=== PATIENT | female | born 1950 | race Caucasian/White ===

== ENCOUNTER 2017-12-01 00:15 | Inpatient (IN) ==
[2017-12-01 01:40] LABS: Hematocrit 23.1 % (35.3-44.9); Hemoglobin 6.9 g/dL (11.5-15.4); Immature Platelets 4.6 % (1.1-6.1); Mean Corpuscular HGB Conc 29.9 g/dL (31.6-35.5); Mean Corpuscular Hemoglobin 26.5 pg (28.0-33.3); Mean Corpuscular Volume 88.8 fL (83.0-100.0); Mean Platelet Volume 10.4 fL (9.4-12.4); Nucleated Red Blood Cells 1.4 /100 WBC (0); Platelet Count 107 K/mcL (140-400); Red Cell Distribution Width 14.3 % (11.5-14.5)
[2017-12-01 01:44] VITALS: BP 64/40
[2017-12-01 01:45] LABS: INR 1.7; Prothrombin Time 18.8 Seconds (9.4-12.1)
[2017-12-01 01:54] LABS: Activated Partial Thrombo Time 128.7 Seconds (26.0-36.0)
[2017-12-01 01:57] LABS: Calcium 4.9 mg/dL (8.6-10.3); Magnesium 1.4 mg/dL (1.6-2.6); Phosphorous 5.2 mg/dL (2.7-4.5); Potassium 3.4 mEq/L (3.5-5.1)
[2017-12-01 02:12] LABS: Monocytes # 0.1 K/mcL (0.0-1.3); Neutrophils # 0.4 K/mcL (1.6-8.9); Platelet Estimate Slight Decrease (Normal); Reactive Lymphocytes Present (Not Present); Toxic Granulation Present (Not Present)
[2017-12-01] MEDS ORDERED: *HR* Morphine 2 MG/ML SYRINGE ONE ×2 (02:25)
--- NOTE | 2017-12-01 03:12 | Internal Med History&Physical ---
Date of Encounter: 12/01/17 Time of Encounter: 00:47 (-) Assessment and Plan (1) Septic shock Current visit: Yes Status: Acute 1. Upon arrival, patient was unstable and we resuscitated her four times per ACLS protocol as noted above. 2. Full supportive measures were exhausted, including multiple pressors, IVF, antibiotics, chest tube placement, as well as ongoing ICU care. 3. Despite all measures, patient at 2:27 am as noted above. Family decided to withdraw support and to stop resuscitation just before expiring. A total of 100 minutes critical time provided on this patient (including procedures and resuscitation measures listed above) from 12:47 am to 2:27 am ( time of ). (2) Pneumonia Current visit: No Status: Acute 1. Patient received IV antibiotics at [facility] prior to transfer. 2. She was receiving full supportive measures at [facility], en route to [place], and in our ICU. 3. Despite above measures, patient . 4. Pneumonia was the most likely cause of septic shock. Qualifiers: Pneumonia type: due to unspecified organism Laterality: left Lung location: unspecified part of lung Qualified Code(s): J18.9 - Pneumonia, unspecified organism (3) Pneumothorax, acute Current visit: Yes Status: Acute 1. Needle decompression performed, followed by chest tube placement. Internal Medicine - H&P: HPI Chief complaint: sepsis; respiratory failure Admitted From: Hospital to Hospital Transfer Plans for Post Hospital Care: at Medical Facility History of present illness: Ms. Lane is a 67 year old female who presented to our ICU in direct transfer from [facility] ER. I received a call earlier this evening from Dr. Schaeffer on this patient who presented to the ER there with agonal respirations, followed by cardiac arrest and emergent intubation. She received chest compressions there for about 1 minute with return of spontaneous circulation. She was ventilated and stabilized with fluids, pressors, antibiotics, and central line placement per Dr. Schaeffer. He contacted me requesting to transfer the patient to our ICU. I accepted the patient in transfer after stabilization in the ER there. Patient arrived shortly after 12:30 this morning, and I was summoned to the bedside at roughly 12:45 AM. Upon arrival to the bedside, patient was hypotensive with blood pressures in the 70s systolic. She was ventilated by ventilator. I performed a quick assessment, and I noted that she had diminished breath sounds on the right side of her chest. At that moment, she became bradycardic, hypoxemic, and more hypotensive. Despite pressors, IV fluids, mechanical ventilation followed by bag mask ventilation, and supportive measures performed earlier at [facility], she continued to decline steadily. Within minutes, she became unstable and we called a rapid response. We began full resuscitative measures at that point as she developed bradycardia and asystole. We resuscitated her per ACLS protocol, and we were successful with the initial attempt. During the resuscitation, there was a high clinical index of suspicion of tension pneumothorax on the right side. We obtained a chest x-ray just before her acute decompensation and we could not verify chest x-ray reading with radiology. Based upon clinical suspicion of a tension pneumothorax and rapid decline of respiratory and hemodynamic status, we placed a needle decompression in the anterior chest wall at the second intercostal space and proceeded with resuscitation as above. Once she was stabilized, we repeated her chest x-ray confirming pneumothorax. She then later became bradycardic and asystolic again, and we again resuscitated her per ACLS protocol. Once she stabilized from the second resuscitative event, I stepped out of ICU to meet with her family to discuss ongoing resuscitative efforts and if patient had any prior expressed wishes. Family expressed that she and the family would like her to be full code and requested that we exhaust all measures possible. I informed them that she was critical and that she would likely not survive this evening, but I reassured them that we would provide all measures available. As I was talking to family, I was called back to the bedside emergently as she was becoming unstable again. We had to again resuscitate her at that moment. She was noted on repeat x-ray to have a pneumothorax and we placed a chest tube emergently during this resuscitation. We were able to stabilize her temporarily, but she again became unstable shortly thereafter. As she was becoming unstable, I requested the family to the bedside as we began our fourth and final resuscitative effort in the short time she was here in our ICU. I talked with the immediate family members present, and they were witnessing the resuscitative efforts provided. I informed them that we were providing all supportive measures and, despite such measures, she was unstable and would likely shortly. It was at that moment that the family requested that we stop all resuscitation, keep her comfortable, and to let her naturally. At their request, we stopped chest compressions, mechanical ventilation, and all supportive measures. We provided morphine via IV for comfort measures. She immediately thereafter at 2:27 AM. Suspected cause of : Septic shock secondary to pneumonia of the left lung Time of : 2:27 AM. Family was present at bedside as the patient . Past Med Surg Social Fam HX - Past Medical History Source: old records reviewed, other (ER discussion with Dr. Schaeffer at [facility]) Medical history: arthritis, COPD, hyperlipidemia, hypertension, other Psychiatric history: no psych history - Past Surgical History Surgical History: ESTELA/BSO - Social History Smoking Status: Current every day smoker Smokeless Tobacco Status: No Alcohol use: none Drug use: none Internal Medicine - H&P: Meds Amlodipine Besylate 10 mg PO DAILY 02/19/17 [History] Lisinopril/Hydrochlorothiazide [Zestoretic 20-25 mg Tablet] 1 each PO DAILY 08/28 [History] Tiotropium [Spiriva] 18 mcg IH 0700 02/19/17 [History] Albuterol Sulfate [Ventolin Hfa] 2 puff IH Q4H PRN 05/16/17 [History] Budesonide/Formoterol 80/4.5 [Symbicort 80/4.5] 2 puff IH Q4H 05/16/17 [History ] Calcium Carbonate/Vitamin D3 [Oyster Shell Calcium-Vit D Tab] 1 each PO DAILY [History] Lovastatin [Lovastatin] 40 mg PO HS 05/16/17 [History] Oxygen 2 l NS CONT 05/16/17 [History] Cephalexin [Keflex] 500 mg PO TID 11/30/17 [History] 3 Allergy/AdvReac Type Severity Reaction Status Date / Time No Known Allergies Allergy Verified 05/16/17 10:06 ROS unobtainable: due to endotracheal tube - Constitutional Vitals: Resp BP Pulse Ox 12 64/40 82 12/01/17 00:43 12/01/17 00:43 12/01/17 00:43 Exam: intubated, unresponsive, ashen cantor upon arrival, hemodynamically unstable upon my initial assessment - Head Head exam: Present: normal inspection - Eye Eye exam: Absent: scleral icterus - ENT ENT exam: Present: mucous membranes dry Additional comments: ETT and OG tubes in place - Neck Neck exam general surgery: Absent: thyromegaly, trachea midline (tracheal deviation to the left) - Respiratory Respiratory exam: Present: decreased breath sounds (dminished/absent breath sounds on the right; prominent breath sounds on the left with coarse rhonchi and crackles). Absent: wheezes - Cardiovascular Cardiovascular exam: Present: bradycardia, distant heart sounds Additional comments: irregular; bradycardic; asystole on multiple occasions - GI/Abdominal GI/Abdominal exam: Present: diminished bowel sounds. Absent: hepatomegaly, splenomegaly - Extremities Exam Extremities exam: Present: cyanotic, mottling. Absent: normal capillary refill (delayed; poor cap refill), radial pulses palpable and symmetrical - Neurological Exam Additional comments: intubated and unresponsive - Psychiatric Additional comments: unresponsive - Skin Skin exam: Present: cyanosis (peripheral), dry, mottled. Absent: rash Additional comments: ashen cantor upon arrival Internal Med - H&P Results - Labs CBC & Chem 7: 12/01/17 01:23 12/01/17 01:23 Labs: Short CBC 12/01/17 Range/Units 01:23 WBC 1.5 L (4.3-11.1) K/mcL Hgb 6.9 L D (11.5-15.4) g/dL Hct 23.1 L (35.3-44.9) % Plt Count 107 L (140-400) K/mcL Neutrophils # 0.4 L (1.6-8.9) K/mcL BMP 12/01/17 01:23 Sodium 142 Potassium 3.4 L Chloride 112 H Carbon Dioxide 24 BUN 24 H Creatinine 1.32 H Glucose 192 H Calcium 4.9 L* - Impressions ITS Impressions Chest X-Ray 12/01/17 00:00 IMPRESSION: Right apical pneumothorax without signs of tension. Findings were called by Dr. Johann Olsen MD to Pj Suazo on 12/01/2017 at 01:40. D/ / Johann Olsen MD / Johann Olsen MD Interpreting Provider: Johann Olsen MD - Diagnostic Studies Chest x-ray Status: image reviewed by me (left clover pneumonia; pneumothorax on right lung)
== END 2017-12-01 06:18 | disposition expired | DRG 871 ==
LOC: ICNU 00:58
PROVIDERS: ADMIT Pediatrics; ATTEND Pediatrics